=== PATIENT | male | born 1970 | race Caucasian/White ===

== ENCOUNTER 2022-08-21 16:00 | Inpatient (IN) | payer OTHER ==
[2022-08-21 17:27] VITALS: TEMP 98.5; BMI 33.5
[2022-08-21] MEDS ORDERED: SODIUM CHLORIDE 1,000 ML IV SCH (17:30)
[2022-08-21 18:07] LABS: BASO % 0.3 % (0-2.0); EOS % 0.3 % (0-4.5); HEMATOCRIT 38.7 % (35.4-49); HEMOGLOBIN 11.9 GM/dL (11.7-16.9); LYMPH % 15.9 % (8-40); MCH 20.5 pg (25.7-33.7); MCHC 30.8 g/dl (32.0-35.9); MEAN CELL VOLUME 66.6 fl (80-96); MEAN PLT VOLUME 8.1 fl (7.5-11.1); NEUT % 78.5 % (42.8-82.8); PLATELET COUNT 224 10^3/uL (134-434); RBC 5.81 M/mm3 (4.00-5.60); RDW 15.3 % (11.9-15.9); WHITE BLOOD COUNT 9.1 K/mm3 (4.0-10.0)
[2022-08-21 18:11] LABS: CALCIUM 9.7 mg/dL (8.5-10.1); INR 1.18 (0.83-1.09); PROTHROMBIN TIME (PATIENT) 13.6 SEC (9.7-13.0)
[2022-08-21 18:13] LABS: BLOOD UREA NITROGEN 7.5 mg/dL (7-18)
[2022-08-21 18:14] LABS: ACTIVATED PTT 30.4 SECONDS (25.2-36.5)
[2022-08-21 18:15] LABS: CREATININE 0.7 mg/dL (0.55-1.3)
[2022-08-21 18:17] LABS: TOT PROT 7.8 g/dl (6.4-8.2)
[2022-08-21 18:18] LABS: BILIRUBIN,TOTAL 0.9 mg/dL (0.2-1)
[2022-08-21 18:48] VITALS: RESP 18
[2022-08-21] MEDS ORDERED: ASPIRIN 81 MG CHEWABLE TABLETS PO ONE (20:17)
[2022-08-21] MEDS ORDERED: ASPIRIN 325 MG TABLET ONE (20:19)
[2022-08-21 21:47] LABS: URINE APPEARANCE Clear; URINE BILIRUBIN Negative (NEGATIVE); URINE COLOR Yellow; URINE GLUCOSE (UA) Negative (NEGATIVE); URINE KETONE Negative (NEGATIVE); URINE LEUK ESTERASE Negative (NEGATIVE); URINE NITRITE Negative (NEGATIVE); URINE PROTEIN Negative (NEGATIVE)
[2022-08-21] MEDS ORDERED: ATORVASTATIN CA 20 MG TABLET (FP) PO ONE (23:12)
[2022-08-21] MEDS ORDERED: MELATONIN 5 MG TABLETS PO ONE (23:46)
[2022-08-21] MEDS ORDERED: ACETAMINOPHEN 1000 MG/100 ML BAG IVPB ONE (23:46)
[2022-08-22] MEDS ORDERED: ACETAMINOPHEN INJECTION 100 ML IVPB ONE (00:08)
[2022-08-22] MEDS ORDERED: MELATONIN 5 MG TABLETS ONE (00:08)
[2022-08-22] MEDS ORDERED: ATORVASTATIN CA 20 MG TABLET (FP) ONE (00:08)
[2022-08-22 00:17] LABS: OPIATES, URI NEGATIVE (NEGATIVE); PHENCYCLIDINE,URINE NEGATIVE (NEGATIVE); URINE BARBITURATES NEGATIVE (NEGATIVE)
[2022-08-22 00:18] LABS: COCAINE, UR NEGATIVE (NEGATIVE)
[2022-08-22 00:43] LABS: METHADONE, UR POSITIVE (NEGATIVE); URINE AMPHETAMINES NEGATIVE (NEGATIVE); URINE BENZODIAZEPINES POSITIVE (NEGATIVE)
[2022-08-22 00:57] LABS: ANISOCYTOSIS 2+; MACROCYTOSIS 0; OVALOCYTE 2+; TEAR DROP CELLS 1+
[2022-08-22 03:51] VITALS: BP 105/63; PULSE 58
[2022-08-22] MEDS ORDERED: ACETAMINOPHEN 1000 MG/100 ML BAG IVPB ONE (07:40)
[2022-08-22] MEDS ORDERED: methaDONE HCL 10 MG TABLET PO SCH (11:15)
[2022-08-22] MEDS ORDERED: methaDONE HCL 40 MG DISPERSABLE TABLET ONE (11:18)
[2022-08-22] MEDS ORDERED: ATORVASTATIN CA 20 MG TABLET (FP) PO SCH (22:00)
== END 2022-08-22 19:56 | disposition home or self-care (01) | DRG 45 ==
LOC: JER 16:00 → JERBED 19:43
PROVIDERS: ADMIT Internal Medicine; ATTEND Internal Medicine
DX: I63.9 Cerebral infarction, unspecified (principal); R29.707 NIHSS score 7; G81.94 Hemiplegia, unspecified affecting left nondominant side; F17.210 Nicotine dependence, cigarettes, uncomplicated; F41.9 Anxiety disorder, unspecified; R53.1 Weakness; F11.20 Opioid dependence, uncomplicated; H53.8 Other visual disturbances; W18.30XA Fall on same level, unspecified, initial encounter; Y92.009 Unspecified place in unspecified non-institutional (private) residence as the place of occurrence of the external cause
CPT/HCPCS: 0241U-QW; 36415; 70450-TC; 70496-TC; 70498-TC; 70551-TC; 71101-TC-RT-FY; 72220-TC-FY; 73502-TC-RT-FY; 80053; 80061; 80307; 81003; 82550; 82962; 83036; 84484; 85025; 85610; 85730; 93005; 93010; 93880-TC; 97116-GP; 97161-GP; 99285-25; Q9967

== ENCOUNTER 2024-06-14 12:48 | Inpatient (IN) | payer OTHER ==
[2024-06-14 13:30] VITALS: BMI 23.5
[2024-06-14] MEDS ORDERED: LOPERAMIDE HCL 2 MG CAPSULE PO PRN (13:41)
[2024-06-14] MEDS ORDERED: BENZONATATE 200 MG CAPSULE PO PRN (13:41)
[2024-06-14] MEDS ORDERED: NALOXONE (NYS OPIOID OVERDOSE PROGRAM) 4 MG/0.1 ML SPRAY NS PRN (13:41)
[2024-06-14] MEDS ORDERED: MAGNESIUM HYDROX 2400MG/30ML ORAL SUSPENSION 30 ML CUP PO PRN (13:41)
[2024-06-14] MEDS ORDERED: NICOTINE POLACRILEX 2 MG GUM BUC PRN (13:41)
[2024-06-14] MEDS ORDERED: DICYCLOMINE HCL 10 MG CAPSULE PO PRN (13:41)
[2024-06-14] MEDS ORDERED: BENZOCAINE/MENTHOL (CHLORASEPTIC ) LOZENGE MM PRN (13:41)
[2024-06-14] MEDS ORDERED: MAG HYDROX/AL HYDROX/SIMETH 30 ML UNIT-DOSE CUP PO PRN (13:41)
[2024-06-14] MEDS ORDERED: IBUPROFEN 600 MG TABLET (FP) PO PRN (13:41)
[2024-06-14] MEDS ORDERED: POLYETHYLENE GLYCOL (HEALTHYLAX) 3350 17 GM PACKET PO PRN (13:41)
[2024-06-14] MEDS ORDERED: BISMUTH SUBSALICYLATE 524 MG/30 ML PO PRN (13:41)
[2024-06-14] MEDS ORDERED: ACETAMINOPHEN 325 MG TABLET (FP) PO PRN (13:41)
[2024-06-14] MEDS ORDERED: ONDANSETRON *ODT* 4 MG TABLET SL PRN (13:41)
[2024-06-14] MEDS ORDERED: NALOXONE (NARCAN) HCL 4 MG/0.1 ML SPRAY NS PRN (13:41)
[2024-06-14] MEDS ORDERED: hydrOXYzine PAMOATE 25 MG CAPSULE (FP) PO PRN (13:41)
[2024-06-14] MEDS ORDERED: IBUPROFEN 400 MG TABLET (FP) PO PRN (13:41)
[2024-06-14] MEDS ORDERED: guaiFENesin 600 MG TABLET.ER (FP) PO PRN (13:41)
[2024-06-14] MEDS ORDERED: chlordiazePOXIDE HCL 25 MG CAPSULE PO PRN (13:42)
[2024-06-14] MEDS ORDERED: levETIRAcetam 500 MG TABLET (FP) PO ONE (14:03)
[2024-06-14] MEDS: chlordiazePOXIDE HCL 25 MG CAPSULE PO ONE (14:07)
[2024-06-14] MEDS: levETIRAcetam 500 MG TABLET (FP) PO SCH (14:07)
[2024-06-14] MEDS: FLU VACCINE (FLULAVAL) PF 45 MCG/0.5 ML SYRINGE 2024-2025 IM ONE (15:48)
[2024-06-14] MEDS: chlordiazePOXIDE HCL 25 MG CAPSULE PO SCH (17:50)
[2024-06-14] MEDS: NICOTINE POLACRILEX 2 MG LOZENGE BC PRN (19:12)
[2024-06-14] MEDS: MELATONIN 5 MG TABLETS PO SCH (22:43)
[2024-06-14] MEDS: THIAMINE 100 MG TABLET PO SCH (22:43)
[2024-06-14] MEDS: METHOCARBAMOL 500 MG TABLET PO PRN (23:40)
[2024-06-15] MEDS: PRENATAL VITAMINS W/ FOLIC ACID TABLET (FP) PO SCH (10:04)
[2024-06-15 11:02] LABS: CALCIUM 9.2 mg/dL (8.5-10.1); POTASSIUM 4.4 mmol/L (3.5-5.1)
[2024-06-15 11:03] LABS: ALBUMIN 3.5 g/dl (3.4-5.0)
[2024-06-15 11:07] LABS: CREATININE 0.8 mg/dL (0.55-1.3)
[2024-06-15 11:09] LABS: TOT PROT 6.7 g/dl (6.4-8.2)
[2024-06-15 11:37] LABS: HEMATOCRIT 36.5 % (35.4-49); HEMOGLOBIN 11.3 GM/dL (11.7-16.9); MCH 21.3 pg (25.7-33.7); MEAN CELL VOLUME 68.5 fl (80-96); RBC 5.33 M/mm3 (4.00-5.60); RDW 15.9 % (11.9-15.9)
[2024-06-15 11:41] LABS: WHITE BLOOD COUNT 6.5 K/mm3 (4.0-10.0)
[2024-06-15] MEDS: SUVOREXANT 10 MG TABLET PO PRN (22:21)
[2024-06-16] MEDS: chlordiazePOXIDE HCL 25 MG CAPSULE PO SCH (05:23)
[2024-06-17] MEDS ORDERED: chlordiazePOXIDE HCL 10 MG CAPSULE PO PRN
[2024-06-17] MEDS: chlordiazePOXIDE HCL 10 MG CAPSULE PO SCH (06:03)
[2024-06-18] MEDS: chlordiazePOXIDE HCL 10 MG CAPSULE PO SCH (05:50)
[2024-06-18] MEDS: SUVOREXANT 15 MG TABLET PO PRN (22:14)
[2024-06-19] MEDS: chlordiazePOXIDE HCL 10 MG CAPSULE PO ONE (05:50)
[2024-06-19 09:31] VITALS: BP 103/68; PULSE 72; RESP 18; TEMP 97.7
== END 2024-06-19 10:33 | disposition home or self-care (01) | DRG 776 ==
LOC: YASAS 12:48 → Y3N 14:34
PROVIDERS: ADMIT Surgery; ATTEND Surgery
PROC: HZ2ZZZZ Detoxification Services for Substance Abuse Treatment (ICD-10-PCS; principal; 2024-06-14)
DX: F13.230 Sedative, hypnotic or anxiolytic dependence with withdrawal, uncomplicated (principal); F12.20 Cannabis dependence, uncomplicated; F17.210 Nicotine dependence, cigarettes, uncomplicated; F19.282 Other psychoactive substance dependence with psychoactive substance-induced sleep disorder; F19.280 Other psychoactive substance dependence with psychoactive substance-induced anxiety disorder; F41.9 Anxiety disorder, unspecified; E78.5 Hyperlipidemia, unspecified; Z86.73 Personal history of transient ischemic attack (TIA), and cerebral infarction without residual deficits
CPT/HCPCS: 36415; 80053; 80305; 80307; 85027; 86780; 90656; 93005; 93010; G0008